=== PATIENT | male | born 1980 | race Two or more races ===

== ENCOUNTER 2021-07-22 07:31 | Outpatient (REF) | payer OTHER, SELFPAY ==
[2021-07-22 08:03] LABS: Binax Now Covid-19 Ag Negative (Negative)
[2021-07-22 08:04] LABS: Binax Internal Control QC Valid; Binax Lot number: 1911
== END 2021-07-22 07:32 | disposition home or self-care (01) ==
LOC: HO.EMPCOV 07:31
PROVIDERS: Visit Provider Internal Medicine
DX: Z20.822 Contact with and (suspected) exposure to COVID-19 (principal)
CPT/HCPCS: 36415; C9803